=== PATIENT | female | born 1980 | race African-American/Black ===

== ENCOUNTER 2019-09-27 07:45 | Emergency (ER) | payer OTHER ==
[2019-09-27 07:50] VITALS: BP 126/80; PULSE 81; TEMP 98.1; BMI 19.3
--- NOTE | 2019-09-27 08:23 | PDOC ---
History of Present Illness - General Chief Complaint: Cold Symptoms Stated Complaint: FLU LIKE SYMPTOMS Time Seen by Provider: 09/27/19 07:55 History Source: Patient Exam Limitations: No Limitations Past History - Past Medical History Allergies/Adverse Reactions: Allergies Allergy/AdvReac Type Severity Reaction Status Date / Time No Known Allergies Allergy Verified 09/27/19 07:52 COPD: No - Surgical History Abdominal Surgery: (ectopic preg, fallopian tube removed) - Psycho Social/Smoking Cessation Hx Smoking History: Current every day smoker Number of Cigarettes Smoked Daily: 3 Information on smoking cessation initiated: No Hx Alcohol Use: Yes Drug/Substance Use Hx: No *Physical Exam - Vital Signs Last Vital Signs Temp Pulse Resp BP Pulse Ox 98.1 F 81 16 126/80 98 09/27/19 07:47 09/27/19 07:47 09/27/19 07:47 09/27/19 07:47 09/27/19 07:47 - Physical Exam HEENT: positive: Nasal Congestion. negative: Muffled/Hoarse voice, Pharyngeal Erythema, Tonsillar Exudate, Tonsillar Erythema, Rhinorrhea Respiratory/Chest: positive: Lungs Clear, Normal Breath Sounds. negative: Respiratory Distress Cardiovascular: positive: Regular Rhythm, Regular Rate, S1, S2. negative: Murmur Gastrointestinal/Abdominal: positive: Normal Bowel Sounds, Soft. negative: Tender, Distended, Guarding, Rebound Integumentary: positive: Normal Color Neurologic: positive: Alert Medical Decision Making - Medical Decision Making 39 y/o F with no sig pmh presents with body aches, fever (Tmax 100.4), chills, sore throat, congestion, emesis and some watery diarrhea from yesterday. Denies sick contacts, recent travel, sob, cp, abd pain, urinary sxs. Did not take any antipyretics today Likely viral syndrome Plan: Flu swab 09/27/19 08:22 Flu negative Patient appears well Is able to tolerate PO stable for dc 09/27/19 08:48 Discharge - Discharge Information Problems reviewed: Yes Clinical Impression/Diagnosis: Gastroenteritis Condition: Stable Disposition: HOME - Admission No - Additional Discharge Information Prescription Drug Monitoring Program (I-STOP) results: I-STOP not reviewed - Follow up/Referral Referrals: ON STAFF,NOT [Primary Care Provider] - 2 Days - Patient Discharge Instructions Patient Printed Discharge Instructions: DI for Viral Gastroenteritis -- Adult Additional Instructions: Thank you for choosing [facility]. It was a pleasure taking care of you. You have likely have the stomach bug Recommend plenty of hydration (at least 2-3L of water daily) You may drink pedialyte Eat light food like bananas, rice, applesauce, toast, crackers until feeling better Follow-up with your doctor in 2 day Return to the Emergency Department if your symptoms worsen or persist or have other concerning symptoms. - Post Discharge Activity
== END 2019-09-27 08:52 | disposition home or self-care (01) ==
LOC: JER 07:45
DX: K52.9 Noninfective gastroenteritis and colitis, unspecified (principal); Z90.79 Acquired absence of other genital organ(s)
CPT/HCPCS: 87804; 99281-25